=== PATIENT | female | born 1980 | race Caucasian/White ===

== ENCOUNTER → 2023-03-23 13:57 | Outpatient (BNVA) | payer BC, SELFPAY | PROVIDERS: Visit Provider Nurse Practitioner Women's Health | DX: N93.9 Abnormal uterine and vaginal bleeding, unspecified (principal); N88.8 Other specified noninflammatory disorders of cervix uteri | CPT/HCPCS: 76830 ==

== ENCOUNTER 2023-06-23 08:22 | Day surgery (SDC) | payer BC, SELFPAY ==
[2023-06-23] VITALS (10 sets, daily range): BP systolic 108–142; BP diastolic 66–95; PULSE 68–78; RESP 12–18; TEMP 36.2–36.6; O2SAT 95–97; BMI 50.6
--- NOTE | 2023-06-23 01:06 | P.HP_ITS ---
Same Day Surgery H&P Indication for Procedure/HPI DATE OF PROCEDURE: June 23, 2023 CHIEF COMPLAINT/INDICATIONFOR SURGICAL PROCEDURE: abnormal uterine bleeding, menometrorrhagia PREOP DIAGNOSIS: abnormal uterine bleeding, menometrorrhagia PLANNED PROCEDURE: Operation Date: 06/23/23 09:55 Proposed Procedures p Hysteroscopy, endometrial sampling, possible endometrial polypectomy 37025, Intrauterine device placement 55167,N93.9(Not Applicable) - James Quiles MD s Poss Poylpectomy(Not Applicable) - James Quiles MD s Placement of Intrauterine Device(Not Applicable) - James Quiles MD 42 y.o. A2 Had Nexplanon removed in February after being in-place for three years During the entire three years, had constant bleeding, occasionally heavy After removal, was given norethindrone, but has continued to bleed Now scheduled for hysteroscopy, endometrial sampling, possible endometrial polypectomy; Placement of mirena intrauterine device Medications/Allergies* Home Medications Medication Instructions Recorded Confirmed Type fluoxetine 20 mg capsule (Prozac) 60 mg PO DAILY 03/11/23 06/22/23 History trazodone 50 mg tablet 25 mg PO BEDTIME 03/11/23 06/22/23 History albuterol sulfate 90 mcg/actuation 2 puff inhalation 6XD PRN 06/22/23 06/22/23 H istory aerosol inhaler Shortness Of Breath norethindrone (contraceptive) 0.35 0.35 mg PO DAILY 06/22/23 06/22/23 History mg tablet Allergies/Adverse Reactions 3 Allergy/AdvReac Type Severity Reaction Status Date / Time Penicillins Allergy Unknown ALGY-Hives Verified 06/22/23 10:55 Pertinent History/Comorbid Conditions* Family History (Updated 03/11/23 @ 08:20 by Iris Wadsworth LPN) Denies family history of Colon cancer Ovarian cancer Prostate cancer Diabetes Heart disease Breast cancer Hypertension Uterine cancer Thyroid disease Stroke Pertinent Exam Findings alert, oriented x 3, clear to auscultation bilaterally and regular rate & rhythm Pertinent Data Pelvic sono 03-23-23 uterus 10 x 5.5 x 6.1 cm Heterogeneous throughout myometrium 1 cm fibroid Endometrium 8 mm Normal ovaries Recommendations Surgery/Procedure today Coding Level of Care Code Acute Code for Chg Fwd Time Spent (min) 20
--- NOTE | 2023-06-23 09:11 | P.ANESASSM_ITS ---
Pre-Anesthetic Assessment Height/Weight: Height 1.63 m Temp Pulse Resp BP Pulse Ox O2 Del Method 97.8 F 78 16 137/95 97 Room Air 06/23/23 09:08 06/23/23 09:08 06/23/23 09:08 06/23/23 09:08 06/23/23 09:08 06/23/23 09:08 Preop Diagnosis: abnormal uterine bleeding Operation Date: 06/23/23 09:55 Proposed Procedures p Hysteroscopy, endometrial sampling, possible endometrial polypectomy 01214, Intrauterine device placement 83383,N93.9(Not Applicable) - James Quiles MD s Poss Poylpectomy(Not Applicable) - James Quiles MD s Placement of Intrauterine Device(Not Applicable) - James Quiles MD Was Beta Jaja taken within 24 hours: N/A Social No alcohol and No tobacco Exam alert, oriented x 3, clear to auscultation bilaterally and regular rate & rhythm Airway Submandibular: within normal limits Cervical ROM: within normal limits Mallampati: Class III History/ROS No significant history except as noted Pulmonary Asthma Neuropsych Anxiety and Depression Anesthetic Plan ASA status: 3 Anesthesia: General Medications/Allergies Home Medications Medication Instructions Recorded Confirmed Last Taken Type fluoxetine 20 mg capsule (Prozac) 60 mg PO DAILY 03/11/23 06/22/23 06/22/23 History trazodone 50 mg tablet 25 mg PO BEDTIME 03/11/23 06/22/23 06/22/23 History albuterol sulfate 90 mcg/actuation 2 puff inhalation 6XD PRN 06/22/23 06/23/23 06/20/23 History aerosol inhaler Shortness Of Breath norethindrone (contraceptive) 0.35 0.35 mg PO DAILY 06/22/23 06/22/23 06/22/23 History mg tablet Allergies Allergy/AdvReac Type Severity Reaction Status Date / Time Penicillins Allergy Unknown ALGY-Hives Verified 06/22/23 10:55 [facility] Anesthesia Family History Denies family history of Colon cancer Ovarian cancer Prostate cancer Diabetes Heart disease Breast cancer Hypertension Uterine cancer Thyroid disease Stroke Data Anesthesia Cardiac Studies: No Data to Display
[2023-06-23 09:12] LABS: OR HCG Qualitative Urine Negative (Negative)
--- NOTE | 2023-06-23 09:13 | W.PM.OPSUD ---
Surgery/Procedure H&P Update DATE OF PROCEDURE: June 23, 2023 DATE H&P PERFORMED: 06/23/23 H&P UPDATE INFORMATION: I have reviewed H&P completed within last 30 days, I have examined patient prior to procedure and No changes to prior documentation PREOP DIAGNOSIS: abnormal uterine bleeding PLANNED PROCEDURE: Operation Date: 06/23/23 09:55 Proposed Procedures p Hysteroscopy, endometrial sampling, possible endometrial polypectomy 14419, Intrauterine device placement 36605,N93.9(Not Applicable) - James Quiles MD s Poss Poylpectomy(Not Applicable) - James Quiles MD s Placement of Intrauterine Device(Not Applicable) - James Quiles MD
[2023-06-23] MEDS: sodium chloride 0.9% 1,000 ML 30 ML IV (09:31)
[2023-06-23] MEDS: famotidine 20 mg/2 mL INJ IVP (09:53)
--- NOTE | 2023-06-23 10:35 | PM.OP ---
Operative Report Date of procedure: June 23, 2023 Pre-op diagnosis: abnormal uterine bleeding Post-op diagnosis: same Post-op findings: normal endometrial cavity No polyps / fibroids Minimal endometrial tissue Procedure done: hysteroscopy Curettage of uterus Placement of mirena IUD Implants: mirena intrauterine device Specimens removed/disposition: endometrial curettings Surgeon: James Quiles MD Anesthesia: MAC Estimated blood loss (mL): 0 Complications: none Condition: stable Disposition: PACU Brief History: 42 y.o. A2 Had Nexplanon removed in February after being in-place for three years During the entire three years, had constant bleeding, occasionally heavy After removal, was given norethindrone, but has continued to bleed Procedure: Informed consent signed. Patient was taken to the operating room. Anesthesia was induced. Patient was placed in dorsolithotomy position, prepped and draped for hysteroscopy. A bivalve speculum was placed in the vagina. The anterior lip of the cervix was grasped with a sharp-toothed tenaculum. The cervix was serially dilated with Hegar dilators. . A hysteroscope was placed into the endometrial cavity. The endometrial cavity was seen to be normal. There were no polyps or fibroids. There was minimal endometrial tissue. The hysteroscope was then removed. Endometrial curettage was done with a sharp curette. Endometrial tissue was sent to pathology. The mirena IUD was then prepared, placed into the endometrial cavity and deployed. A 3-4 cm string was left at the cervical os. The sharp-toothed tenaculum was removed. There was no bleeding from the endometrial cavity or cervix. The patient was then placed supine and awakened and taken to the PACU. Postop condition: stable EBL: none Sponge and instruments counts were normal x 2 Complications: none
--- NOTE | 2023-06-23 11:12 | ANE.PACU2 ---
Inpatient post-anesthesia follow up: Vital signs: Temperature 97.2 F Pulse Rate 70 Respiratory Rate 18 Blood Pressure 122/66 Pulse Oximetry 97 Oxygen Delivery Me thod Room Air Oxygen Flow Rate Fraction of Inspir ed Oxygen Hydration adequate: Yes Nausea and vomiting: No Pain level: 4 Mental status: Baseline
== END 2023-06-23 11:55 | disposition home or self-care (01) ==
PROVIDERS: Anesthesiology; Visit Provider Obstetrics & Gynecology
PROC: 0UJD8ZZ Inspection of Uterus and Cervix, Via Natural or Artificial Opening Endoscopic (ICD-10-PCS; CPT 58555; principal; 2023-06-23 09:45)
PROC: (CPT 58300; 2023-06-23 09:45)
DX: N93.9 Abnormal uterine and vaginal bleeding, unspecified (principal); J45.909 Unspecified asthma, uncomplicated; F17.200 Nicotine dependence, unspecified, uncomplicated
CPT/HCPCS: 58300; 58558; 81025; 88305; J1100; J1885; J2405; J2704; J3010; J3490; J7030

== ENCOUNTER 2024-11-11 11:39 | Emergency (ER) | payer BC, SELFPAY ==
[2024-11-11 11:42] VITALS: BP 160/94; PULSE 91; RESP 20; TEMP 36.9; O2SAT 99; BMI 41.6
--- NOTE | 2024-11-11 11:43 | ECG_ITS ---
[facility] Test Date: 2024-11-11 Pat Name: Melia Urban Department: Room: Gender: Female Specialty Therapist: : 1980 Requested By: Michael Ramos Order Number: [id number] Mimi MD: Jose Cruz M.D. Measurements Intervals [place] Rate: 87 P: 51 MD: 144 QRS: 39 QRSD: 98 T: 72 QT: 370 QTc: 446 Interpretive Statements SINUS RHYTHM No previous ECG available for comparison Electronically Signed On 11-11-2024 17:37:39 CDT by Jose Cruz M.D. [email or web address]
--- NOTE | 2024-11-11 11:43 | XRR_ITS ---
PROCEDURE INFORMATION: Exam: XR Chest Exam date and time: 11/11/2024 11:59 AM Age: 44 years old Clinical indication: Pain; Chest pressure; Additional info: Chest pains; Anxiety attack TECHNIQUE: Imaging protocol: Radiologic exam of the chest. Views: 1 view. COMPARISON: No relevant prior studies available. FINDINGS: Lungs: Unremarkable. No consolidation. Pleural spaces: Unremarkable. No pleural effusion. No pneumothorax. Heart/Mediastinum: Unremarkable. No cardiomegaly. Bones/joints: Unremarkable. XR/XR chest 1V portable [id number] IMPRESSION: No acute findings.
--- OUTSIDE RECORDS SUMMARY | 2024-11-11 11:43 | XMS_ITS | Clinical Summary ---
Author Organization [facility] Address [address] [place] [address] [address] [place] [address] Care Team Providers Care Superintendent System Operation Name Role Phone Jose Carlos Machuca MD Primary Care Provider [phone] Allergies Active Allergy Reactions Criticality Noted Date Comments Epoxy Resin Rash Low 11/03/2022 Lisinopril Cough Low 07/18/2024 Penicillins Rash Low 01/17/2019 Medications albuterol sulfate HFA 90 mcg/actuation aerosol inhalerIndicatio ns:Acute bronchitis, unspecified organism Take 2 Puffs by inhalation every 6 hours as needed for Shortness of Breath or Wheezing. 8.5 Gram 4 03/22/19 Active Nebulizer Accessories KitIndications:W heezing Use with Nebulizer. 1 Each 02/20/20 24 Active ipratropium-albu teroL (DUONEB) 0.5 mg-3 mg(2.5 mg base)/3 mL Solution for NebulizationIndi cations:Wheezing Take 3 mL by inhalation every 6 hours as needed for Shortness of Breath. 48 Each 1 02/20/20 24 Active nebulizerIndicat ions:Wheezing Length of need 99 months Nebulizer with compressor, Kit: Permanent Nebulizer Kit, 1 per 6 months, filters , areosol mask: Yes. Name of Medication Duoneb. 1 Each 02/20/20 24 Active levonorgestreL (Mirena) 21 mcg/24hr (up to 8 yrs) 52 mg IUD 1 Device by Intrauterine route. Active FLUoxetine (PROzac) 40 mg capsuleIndicatio ns:Generalized anxiety disorder Take 1 capsule by mouth once daily with a 20 MG capsule to equal 60 MG daily 90 Capsule 3 03/08/19 25 Active FLUoxetine (PROzac) 20 mg capsuleIndicatio ns:Generalized anxiety disorder TAKE 1 CAPSULE BY MOUTH ONCE DAILY ALONG WITH 40MG CAPSULE TO EQUAL 60 MG 90 Capsule 3 03/08/19 25 Active traZODone (DESYREL) 50 mg tabletIndication s:Insomnia, unspecified type TAKE 1/2 (ONE-HALF) TABLET BY MOUTH ONCE DAILY AT BEDTIME 45 Tablet 3 03/08/19 25 Active amLODIPine (NORVASC) 10 mg tabletIndication s:Benign hypertension Take 1 Tablet (10 mg) by mouth daily. 30 Tablet 7 08/02/19 25 Active phentermine (ADIPEX P) 37.5 mg tabletIndication s:Morbid obesity with body mass index of 40.0-49.9 (CMS/HCC) Take 1 Tablet (37.5 mg) by mouth daily before breakfast. 30 Tablet 11/01/19 25 Active phentermine (ADIPEX P) 37.5 mg tabletIndication s:Morbid obesity with body mass index of 40.0-49.9 (CMS/HCC) Take 1 Tablet (37.5 mg) by mouth daily before breakfast. 30 Tablet 09/04/19 25 025 Discontin ued(Reord er) Active Problems Problem Noted Date Diagnosed Date Insomnia 03/08/2024 Recurrent major depressive disorder, in partial remission 03/08/2024 Generalized anxiety disorder 07/18/2020 Morbid obesity with body mass index of 40.0-49.9 07/11/2019 Benign hypertension 03/19/2019 Cigarette dependence 01/17/2019 Encounters Date Type Department Care Team Description 10/31/2024 12:20 PM CDT Office Visit [address] [phone] Jose Carlos Machuca MD Morbid obesity with body mass index of 40.0-49.9 (Primary Dx); Benign hypertension 10/24/[address] [address] Denia Navarro NP Appointment Correction 09/25/2024 External Device Data [facility] ABSTRACTION Provider, Abstract 09/05/2024 External Device Data [facility] ABSTRACTION Provider, Abstract 09/04/2024 External Device Data [facility] ABSTRACTION Provider, Abstract 08/31/2024 10:30 AM CDT Clinical Support [facility] [address] [place] [address] Benign hypertension (Primary Dx) 08/31/2024 Refill [facility] [address] [place] [address] Jose Carlos Machuca MD Morbid obesity with body mass index of 40.0-49.9 (CMS/HCC) from Last 3 Months Immunizations Immunization Administration Dates Next Due (SPIKEVAX) (12 YRS UP PRIMAR Y SERIES) COVID-19 VACCINE - MRNA-1273(PF) 100 MCG/0.5 ML IM SUSP 09/03/2020 INFLUENZA VACCINE QUADRIVALENT 6 MOS UP PF IM INFLUENZA VACCINE QUADRIVALENT RECOMB 18 YR UP P F IM 12/01/2022 INFLUENZA VACCINE TRIVALENT SPLIT VIRUS, (6 MOS UP), 0.5ML (PF), IM 10/31/2024,11/23/2023 Influenza Seasonal Unspecified Formulation IM Skin Test TB 05/30/2024 Family History Medical History Relation Name Comments Cancer Father José Miguel Mullerekin's lymp germain Melanoma Maternal Grandfather Puneet Has str uggled with this for last few years Breast Cancer Maternal Grandmother Carmen had it when she was young had it surgically removed Pancreatic Cancer Maternal Grandmother Carmen Sh e passed from complications of whippel surgery Healthy Mother Merissa portillo Uterine Cancer Sister Colon Cancer Neg Hx Relation Name Status Comments Father José Miguel portillo Maternal Grandfather Puneet Alive Maternal Grandmother Carmen Alive Mother Merissa portillo Sister Social History Tobacco Use Types Packs/Day Years Used Date Smoking Tobacco: Every Day Cigarettes 1 20 Passive Smoke Exposure: Current Smokeless Tobacco: Never Tobacco Cessation:Ready to Q uit: No; Counseling Given: Yes Alcohol Use Standard Drinks/Week Comments Yes 0 (1 standard drink = 0.6 oz pur e alcohol) Comments No Sex and Gender Information Value Date Recorded Sex Assigned at Female 11/03/2022 8:32 AM CDT Legal Sex Female 9:19 PM DUMP ATTENDANT Gender Identity Female 11/03/2022 8:32 AM CDT Sexual Orientation Straight 11/03/2022 8: 32 AM CDT Last Filed Vital Signs Vital Sign Reading Time Taken Comments Blood Pressure 130/80 10/31/2024 12:18 PM CDT Pulse 88 10/31/2024 12:18 PM CDT Temperature 36.9 C (98.5 F) 10/31/2024 12:18 PM CDT Respiratory Rate 18 10/31/2024 12:18 PM CDT Oxygen Saturation 98% 10/31/2024 12:18 PM CDT Inhaled Oxygen Concentration - - Weight 111.1 kg (245 lb) 10/31/2024 12:18 PM CDT Height 162.6 cm (5' 4 ) 10/31/2024 12:18 PM CDT Body Mass Index 42.05 10/31/2024 12:18 PM CDT Plan of Treatment Upcoming Encounters Date Type Department Care Team (Late st Contact Info) Description 05/02/2025 8:00 AM CDT Office Visit [facility] Medicine [address] [phone] Jose Carlos Machuca MD [address] [address] Health Maintenance Due Date Last Done Comments HEPATITIS B VACCINES (1 of 3 - 19+ 3-dose series) 2001 HPV VACCINES (1 - 3-dose SCD M series) 2009 Pre-Diabetes and Diabetes Screening 03/03/2024 03/03/2021 PAP SMEAR 09/23/2024 09/23/2021 COVID-19 Vaccine (2 - 2024-2 6 season) 2024 09/03/2020 BREAST CANCER SCREENING 03/14/2025 03/14/2024, 03/09 CERVICAL CANCER SCREENING 09/23/2026 HPV/Cotest (21-29) 09/23/2026 09/23/2021 HPV/Cotest (30-65) 09/23/2026 09/23/2021 DTAP/TDAP/TD VACCINES (2 - T d or Tdap) 10/06/2027 10/05/2017 Preventative Visit- Commercial Completed 0 05/25/2024, 09/23/2021, 03/03/2021 INFLUENZA VACCINE Completed 10/31/2024, , 12/01/2022, Additional history exists Procedures Procedure Name Priority Date/Time Associated Diagnosis Comments MAMMO 3D SHANNAN SCREEN BILAT W OR WO CAD Routine 03/14/2024 9:20 AM DUMP ATTENDANT Breast cancer screening by mammogram CERV/VAG CYTO SCREEN PAP RLFX HPV Routine 09/23/2021 4:41 PM CDT Well woman exam with routine gynecological exam HEMOGLOBIN A1C Routine 03/03/2021 9:54 AM DUMP ATTENDANT Encounter for routine adult health examination with abnormal findings from Last 3 Months or Most Recently Relevant to Health Maintenance Results * MAMMO 3D SHANNAN SCREEN BILAT W OR WO CAD (03/14/2024 9:20 AM DUMP ATTENDANT) Anatomical Region Laterality Modality Breast Bilateral Mammography, Dig ital Radiography Impressions 03/21/2024 9:07 PM DUMP ATTENDANT : No mammographic evidence of malignancy. BI-RADS ASSESSMENT: 1 - Negative RECOMMENDATION: Routine annual screening mammography. Narrative 03/21/2024 9:07 PM DUMP ATTENDANT EXAM: MAMMO SCRN BILAT 3D SHANNAN W OR WO CAD INDICATION: Screening COMPARISON: 03/09/2023 MAMMO 3D SHANNAN SCREEN BILAT W OR WO CAD BREAST COMPOSITION: There are scattered areas of fibroglandular density. FINDINGS: RIGHT BREAST: There are no suspicious masses, calcifications, or areas of architectural distortion. LEFT BREAST: There are no suspicious masses, calcifications, or areas of architectural distortion. us Jose Carlos Machuca MD MAMMO ORDERABLES Final Re sult * CERV/VAG CYTO SCREEN PAP RLFX HPV (09/23/2021 4:41 PM CDT) CLINICAL INFORMATION Maryjane Lennon Comment:Information not prov ided LAST MENSTRUAL PERIOD Maryjane Lennon Comment:[id number] PREV PAP: [facility] DiagnosticsJazzmine Lennon Comment:INFORMATION NOT PROV IDED PREV BX: [facility] DiagnosticsDavidTodd italo Lennon Comment:INFORMATION NOT PROV IDED SOURCE Maryjane HansonJazzmine Lennon Comment:ENDOCERVIX ADEQUACY: Maryjane ValentinJazzmine Lennon Comment: Satisfactory for evaluation. Endocervical/transformation zone component present. PAP INTERP Maryjane HansonJazzmine italo Saji Comment:Negative for intraep ithelial lesion or malignancy. CYTOLOGY INFECTION Q ujesus alberto HansonJazzmine Lennon Comment: Shift in vaginal jose r suggestive of bacterial vaginosis. COMMENT (PAP TEST) Q ujesus alberto HansonJazzmine Lennon Comment: This Pap test has been evaluated with computer assisted technology. LAND MANAGEMENT SUPERVISOR: Angelita Lennon Comment: BES, CT(ASCP) CT screening location: [place] [address] [address] CHANDNI Moser [id number] Daiana Lennon Comment: EXPLANATORY NOTE: The Pap is a screening test for cervical cancer. It is not a diagnostic test and is subject to false negative and false positive results. It is most reliable when a satisfactory sample, regularly obtained, is submitted with relevant clinical findings and history, and when the Pap result is evaluated along with historic and current clinical information. Test Performed at: [place] [address] [address] CHANDNI Mendez [phone] Faustino Hart Genital SWAB OF ENDOCERVIX / Unknown 09/23/2021 4:41 PM CDT 09/25/2021 6:08 AM CDT Myah Cota PARIMUTUEL TICKET CHECKER PATHOLOGY/CYTOLOGY ORDERABLES Fi nal Result [facility] [phone] [place] [address] [address] CHANDNI Mendez [id number] * HEMOGLOBIN A1C (03/03/2021 9:54 AM DUMP ATTENDANT) HEMOGLOBIN A1C 4.8 <5.7 % of total Hgb [facility] Comment: For the purpose of screening for the presence of diabetes: <5.7% Consistent with the absence of diabetes 5.7-6.4% Consistent with increased risk for diabetes (prediabetes) > or =6.5% Consistent with diabetes This assay result is consistent with a decreased risk of diabetes. Currently, no consensus exists regarding use of hemoglobin A1c for diagnosis of diabetes in children. According to [place] Diabetes Association (ADA) guidelines, hemoglobin A1c <7.0% represents optimal control in non- diabetic patients. Different metrics may apply to specific patient populations. Standards of Medical Care in Diabetes(ADA). ESTIMATED AVERAGE GLUCOSE (MG/DL) 91 mg/dL [facility] ESTIMATED AVERAGE GLUCOSE (MMOL/L) 5.0 mmol/L [facility] Comment: Test Performed at: [facility] [address] [place] [address] Driss Carlton D.O., MPH Blood 03/03/2021 9:54 AM DUMP ATTENDANT 03/04/2021 3:48 AM DUMP ATTENDANT us Myah Cota PARIMUTUEL TICKET CHECKER CHEMISTRY ORDERABLES Final Resul t [facility] [address] [place] [address] from Last 3 Months or Most Recently Relevant to Health Maintenance Insurance [employer] BLUE ACCESS/TRUE BLUE PPO Care Teams Superintendent System Operation Relationship Specialty Start Date End Date Jose Carlos Machuca MD [address] [address] PCP - General Family Practice 01/27/19
[2024-11-11 11:50] VITALS: BP 160/94; PULSE 91; RESP 20; TEMP 36.9; O2SAT 99
[2024-11-11 11:59] LABS: Hematocrit 47.4 % (36-47); Hemoglobin 16.70 g/dL (11.27-16.99); Mean Corpuscular HGB Conc 35.2 g/dL (30-55); Mean Corpuscular Hemoglobin 31.8 pg (27-33); Mean Corpuscular Volume 90.3 fl (85-98); Nucleated Red Blood Cells % 0 %; Platelet Count 295 10^3/cmm (157-399); Red Blood Count 5.25 10^6/uL (3.85-5.65); White Blood Count 6.54 10^3/uL (3.29-11.43)
--- NOTE | 2024-11-11 12:02 | W.ED.CHESTPA ---
HPI - Chest Pain General: Chief Complaint: Chest Pain Stated Complaint: chest pains Time Seen by Provider: 11/11/24 11:43 Source: patient Mode of arrival: ambulatory Limitations: no limitations History of Present Illness: Patient is a 44-year-old female presents to ED today with complaint of chest tightness , hand tingling/sweatiness, feeling out of my body , as well as a sensation that her heart is racing. She states she had an episode yesterday lasting 20 to 30 minutes. Patient feels like symptoms improved after drinking a beer. She states she had another episode similar today thus prompting her medical evaluation. During my evaluation-she feels like her heart is racing but she has normal sinus rhythm with a rate of 85 on the monitor. She clinically appears anxious and tearful. States she has no history of panic attacks. She does feel like she has a sense of impending doom. Patient has no known cardiac history. She is an everyday smoker. She has a history of hypertension and treats with amlodipine. She does feel like her blood pressure is hard to control now that she is on phentermine. MD complaint: chest pain Onset (ago): day(s) Timing of current episode: episodic Prior episodes: Yes (yesterday) Onset: during rest Pain radiation: none Quality: tightness Relieving factors: other (yesterday drinking a beer helped) Exacerbating factors: nothing Associated symptoms: Deny abdominal pain, dyspnea, fever(s), nausea, palpitations, syncope or vomiting Treatment prior to arrival: none Risk Factors: Coronary artery disease risk factors: smoking history and hypertension Thoracic aortic dissection risk factors: none Related Data Home Medications ?Medication ?Instructions ?Recorded ?Confirmed fluoxetine 20 mg capsule (Prozac) 60 mg PO DAILY 03/11/23 11/11/24 trazodone 50 mg tablet 25 mg PO BEDTIME PRN Sleep 03/11/23 11/11/24 albuterol sulfate 90 mcg/actuation 2 puff inhalation 6XD PRN 06/22/23 11/11/24 aerosol inhaler Shortness Of Breath norethindrone (contraceptive) 0.35 0.35 mg PO DAILY 06/22/23 11/11/24 mg tablet amlodipine 10 mg tablet 10 mg PO DAILY 11/11/24 11/11/24 fluoxetine 40 mg capsule 40 mg PO DAILY 11/11/24 11/11/24 phentermine 37.5 mg tablet 37.5 mg PO QAM 11/11/24 11/11/24 Previous Rx's ?Medication ?Instructions ?Recorded lorazepam 1 mg tablet (Ativan) 1 mg PO Q12H PRN anxiety #10 tabs 11/11/24 Allergies Allergy/AdvReac Type Severity Reaction Status Date / Time Penicillins Allergy Unknown ALGY-Hives Verified 06/22/23 10:55 Review of Systems Const: Denies: fever(s), chills, body aches, fatigue or malaise Eyes: Denies: change in vision, blurry vision, photophobia, floaters or seeing flashes Card: Reports: chest pain ( tightness ); Denies: palpitations, irregular heart rhythm, edema, swelling of feet/ankles, syncope, pre-syncope, dyspnea on exertion, orthopnea, leg pain with exertion or acrocyanosis Resp: Denies: dyspnea, productive cough, non-productive cough or chest congestion GI: Denies: abdominal pain, nausea, vomiting or diarrhea : Denies: flank pain, difficulty voiding, dysuria, urinary frequency, urinary urgency or urinary hesitancy Musc: Denies: neck pain, back pain, extremity pain, extremity swelling, joint pain, joint swelling or joint redness Skin/Breast: Denies: rash Neuro: Reports: sensory changes (hands); Denies: headache(s), numbness in extremities, weakness in extremities, dizziness, confusion, behavioral changes or seizure-like activity PFSH ED PFSH: Family History Denies family history of Colon cancer Ovarian cancer Prostate cancer Diabetes Heart disease Breast cancer Hypertension Uterine cancer Thyroid disease Stroke Physical Exam Const: COMMON NORMALS: patient oriented x3, no limitations, alert and well nourished GENERAL APPEARANCE: cooperative and anxious NUTRITIONAL APPEARANCE: obese morbidly obese (BMI 41.6) ORIENTATION/CONSCIOUSNESS: Yes awake, Yes oriented to person, Yes oriented to place and Yes oriented to time HENMT: COMMON NORMALS: normocephalic and atraumatic HEAD & SCALP: normal to inspection, normocephalic and atraumatic Eye: COMMON NORMALS: no scleral icterus Neck/C-Spine: COMMON NORMALS: full ROM, no lymphadenopathy, supple and no meningeal signs Chest: COMMONS NORMALS: normal inspection of the chest Resp: COMMON NORMALS: normal respiratory effort and clear to auscultation bilaterally AUSCULTATION: clear to auscultation bilaterally Cardio: COMMON NORMALS: regular rate and regular rhythm RATE: regular rate RHYTHM: regular rhythm GI: COMMON NORMALS: Normal to inspection, nondistended, normoactive bowel sounds present, Soft to palpation, non-tender, No hepatosplenomegaly present and no masses PALPATION: Yes Soft to palpation and Yes No hepatosplenomegaly present : COMMON NORMALS: Yes no CVA tenderness BLADDER/KIDNEY EXAM: Yes no CVA tenderness Back/Pelvis: COMMON NORMALS: no CVA tenderness and thoracic and lumbar spine normal to inspection Extremity: COMMON NORMALS: normal to inspection, capillary refill normal, no clubbing, cyanosis or edema, no calf tenderness and no pedal edema GENERAL: Yes normal exam except as noted Neuro: ALCON COMA SCALE: document GCS findings Alcon coma scale eye opening: Spontaneous Alcon coma scale verbal response: Orientated [place] coma scale motor response: Obey commands [place] coma scale total score: 15 COMMON NORMALS: patient oriented x3, moves all extremities, no focal motor deficits, no sensory deficits noted and gait normal SENSORIUM/ORIENTATION: Yes alert, Yes oriented to person, Yes oriented to place and Yes oriented to time MENINGEAL SIGNS: Yes no meningeal signs Skin: COMMON NORMALS: no rashes or lesions noted GENERAL SKIN EXAM: no rashes or lesions noted Course Vital Signs: Vital signs: Vital Signs Temperature 98.4 F 11/11/24 11:50 Pulse Rate 91 11/11/24 11:50 Respiratory Rate 20 H 11/11/24 11:50 Blood Pressure 160/94 11/11/24 11:50 Pulse Oximetry 99 11/11/24 11:50 MDM - Chest Pain Medical Decision Making Patient's workup here overall benign. Her EKG is nonischemic. Baseline troponin is normal. Based on history, I do not feel she needs to stay for repeat troponin. Based on her history and exam, I have a high suspicion that this may be anxiety induced. She was given IV Ativan here and on re-assessment states she feels 100x better . States all of her symptoms have resolved. Will RX small amount of Ativan she can use sparingly for panic attacks. Would like her to follow-up with primary care regardless this week for ER follow-up. Discussed potentially limiting caffeine use. She is also on stimulant phentermine. These both could be contributing to increased anxiety. Return precautions discussed. Medical Records I reviewed the patient's medical records. Lab Data I reviewed the patient's lab results. 11/11/24 11:55 11/11/24 11:55 Laboratory Results WBC 6.54 10^3/uL (3.29-11.43) 11/11/24 11:55 RBC 5.25 10^6/uL (3.85-5.65) 11/11/24 11:55 Hgb 16.70 g/dL (11.27-16.99) 11/11/24 11:55 Hct 47.4 % (36-47) H 11/11/24 11:55 MCV 90.3 fl (85-98) 11/11/24 11:55 MCH 31.8 pg (27-33) 11/11/24 11:55 MCHC 35.2 g/dL (30-55) 11/11/24 11:55 RDW 11.5 % (12.1-15.1) L 11/11/24 11:55 Plt Count 295 10^3/cmm (157-399) 11/11/24 11:55 MPV 9.0 fL (7.4-10.4) 11/11/24 11:55 Neut % (Auto) 62.2 % 11/11/24 11:55 Lymph % (Auto) 27.8 % 11/11/24 11:55 [place] % (Auto) 8.0 % 11/11/24 11:55 Eos % (Auto) 1.1 % 11/11/24 11:55 Baso % (Auto) 0.6 % 11/11/24 11:55 Neut # (Auto) 4.07 10^3/uL (1.8-7.7) 11/11/24 11:55 Lymph # (Auto) 1.8 10^3/uL (0.8-4.8) 11/11/24 11:55 [place] # (Auto) 0.5 10^3/uL (0.2-0.9) 11/11/24 11:55 Eos # (Auto) 0.1 10^3/uL (0.0-0.8) 11/11/24 11:55 Baso # (Auto) 0.0 10^3/uL (0.0-0.1) 11/11/24 11:55 Nucleated RBC % (auto) 0 % 11/11/24 11:55 Nucleated RBCs # 0.0 /100WBC 11/11/24 11:55 Sodium 135 mmol/L (136-145) L 11/11/24 11:55 Potassium 4.3 mmol/L (3.5-5.1) 11/11/24 11:55 Chloride 97 mmol/L (98-107) L 11/11/24 11:55 Carbon Dioxide 23 mmol/L (22-29) 11/11/24 11:55 Anion Gap 19.3 (5-19) H 11/11/24 11:55 BUN 6 mg/dL (6-20) 11/11/24 11:55 Creatinine 0.6 mg/dL (0.5-0.9) 11/11/24 11:55 GFR Calculation 109.6 mL/min (90-130) 11/11/24 11:55 Glucose 110 mg/dL (65-115) 11/11/24 11:55 Calculated Osmolality 278 mOsm/kg (285-295) L 11/11/24 11:55 Calcium 9.4 mg/dL (8.5-10.5) 11/11/24 11:55 Total Bilirubin 0.5 mg/dL (0.15-1.2) 11/11/24 11:55 AST 32 U/L (0-32) 11/11/24 11:55 ALT 34 U/L (0-33) H 11/11/24 11:55 Alkaline Phosphatase 64 U/L (35-105) 11/11/24 11:55 Troponin T Baseline < 6 ng/L (0-10) 11/11/24 11:55 Total Protein 7.9 g/dL (6.6-8.7) 11/11/24 11:55 Albumin 4.7 g/dL (3.5-5.2) 11/11/24 11:55 Globulin 3.2 g/dL (1.3-4.6) 11/11/24 11:55 Lipase 77 U/L (13-60) H 11/11/24 11:55 TSH 0.79 uIU/mL (0.27-4.20) 11/11/24 11:55 XR interpretation done by ED provider, pending radiology final review Discharge Plan Discharge Patient Disposition: Home Clinical Impression: Panic attack Condition: Stable Prescriptions: New lorazepam [Ativan] 1 mg tablet 1 mg PO Q12H PRN (Reason: anxiety) Qty: 10 0RF No Action fluoxetine [Prozac] 20 mg capsule 60 mg PO DAILY Rx Instructions: along with 40mg to=60mg total trazodone 50 mg tablet 25 mg PO BEDTIME PRN (Reason: Sleep) norethindrone (contraceptive) 0.35 mg tablet 0.35 mg PO DAILY albuterol sulfate 90 mcg/actuation Hfa Aerosol Inhaler 2 puff INHALATION 6XD PRN (Reason: Shortness Of Breath) fluoxetine 40 mg capsule 40 mg PO DAILY Rx Instructions: along with 20mg to=60mg total phentermine 37.5 mg tablet 37.5 mg PO QAM amlodipine 10 mg tablet 10 mg PO DAILY Discharge Orders: Discharge ED (Routine); Ordered 11/11/24 Ordered By: Sparkle Harrell Referrals: Jose Carlos Machuca [Primary Care Provider, Family Practice] Patient Instructions: Anxiety (ED), Panic Attack (ED), Panic Attack, Patient Portal & [facility]akov Instructions Activity Restrictions/Additional Instructions: As we discussed, your symptoms today were significantly improved after IV Ativan making me believe that anxiety was the contributing factor to your symptoms. We discussed giving you a prescription for a small amount of Ativan that you may use for severe panic attack symptoms. Your cardiac workup here was benign. I would like you to follow-up with primary care next week. We discussed keeping a blood pressure log as well as blood pressures have been elevated here in the emergency department. We discussed limiting caffeine use as this could contribute to anxiety. You may return to the emergency department at anytime for any further concerns you may have. I hope you begin to feel better soon. Print Language: Bengali Coding Level of Care Code ED Carpenter Labor Supervisor for [facility]
--- NOTE | 2024-11-11 12:06 | PC.PHAR ---
pt states she only took her Prozac this morning.
[2024-11-11 12:26] LABS: Troponin(5th) Baseline < 6 ng/L (0-10)
[2024-11-11 12:29] LABS: Alanine Aminotransferase 34 U/L (0-33); Albumin Level 4.7 g/dL (3.5-5.2); Alkaline Phosphatase 64 U/L (35-105); Aspartate Amino Transferase 32 U/L (0-32); Blood Urea Nitrogen 6 mg/dL (6-20); Calcium 9.4 mg/dL (8.5-10.5); Carbon Dioxide 23 mmol/L (22-29); Chloride 97 mmol/L (98-107); Creatinine Clr Calc Pharmacy 142.8394; Globulin 3.2 g/dL (1.3-4.6); Glucose 110 mg/dL (65-115); Lipase 77 U/L (13-60); Osmolality Calculated 278 mOsm/kg (285-295); Sodium 135 mmol/L (136-145); Total Protein 7.9 g/dL (6.6-8.7)
[2024-11-11 12:35] LABS: Anion Gap 19.3 (5-19); Potassium 4.3 mmol/L (3.5-5.1)
[2024-11-11] MEDS: LORazepam 1 MG/0.5 ML injection IVP (12:39)
[2024-11-11 12:53] LABS: Thyroid Stimulating Hormone 0.79 uIU/mL (0.27-4.20)
[2024-11-11 13:30] VITALS: BP 141/87; PULSE 89; RESP 20; O2SAT 96
== END 2024-11-11 13:31 | disposition home or self-care (01) ==
PROVIDERS: Emergency Medicine; Emergency Provider Physician Assistant; PCP Family Medicine
DX: F41.0 Panic disorder [episodic paroxysmal anxiety] (principal)
CPT/HCPCS: 71045; 80053; 83690; 84443; 84484; 85025; 93005; 96374; 99285; J2060; J9999